=== PATIENT | male | born 1970 | race Caucasian/White ===

== ENCOUNTER → 2020-11-07 | Outpatient (CLI) | payer OTHER ==
--- NOTE | 2020-11-18 12:38 | PF ---
[place] [address] PULMONARY FUNCTION REPORT Name: RYLEE PAT Room: [facility].#: [id number] Admission: 11/07/20 Attend Phys: Jeffery Baca Discharge: Date of : 68 Report #: [id number] THIS REPORT FOR: cc: Jeffery Toussaint DO Breana,Jeffery Alvarado DO Zechariah Cortes MD ~ DATE OF VISIT: 11/07/2020 The FEV1/FVC ratio is decreased to 63% with an FVC decreased to 76%. The FEV1 is decreased at 62%. FEF 25-75 is decreased to 44%. After the administration of a bronchodilator, there is a 15% increase in FEV1 to a post-bronchodilator FEV1 of 2.78 liters. Only a spirometry was performed. The flow volume loop is concave upwards. IMPRESSION: 1. Moderate obstruction with evidence of reversibility. 2. There is suggestion of mild restriction as well as the forced vital capacity is decreased to 76%. If further evaluation is clinically indicated, then full pulmonary function tests with lung volumes can be performed. <ELECTRONICALLY SIGNED> By: Zechariah Cortes MD 11/18/20 1238 [id number] Cortes MD /nt
== END ==
LOC: M.LAB 10-09 12:29 → EDSEX 08:00 → M.LAB 08:00
PROVIDERS: ATTEND Chiropractor
DX: J98.4 Other disorders of lung (principal); J44.9 Chronic obstructive pulmonary disease, unspecified; E03.9 Hypothyroidism, unspecified